=== PATIENT | male | born 1975 | race Caucasian/White ===

== ENCOUNTER 2018-12-14 22:17 | Emergency (ER) | payer BC ==
[2018-12-14] MEDS ORDERED: NS 0.9% 1000 ML** 1,000 ML IV.FLUID IV ONE (22:24)
--- NOTE | 2018-12-14 22:30 | ED ---
Palpitations / Dysrhythmia - HPI Summary HPI Summary: A 43 y/o male brought in by [facility] ambulance presents to [facility] with a chief complaint of having shaking chills and a low heart rate in the 40s per EMS. Per EMS the patient's BP was 131/78 and O2 sat was 99% on room air. 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 The patient denies any pain, rating his pain as a 0/10 in severity. He notes that he felt SOB today, has been coughing for months, woke up feverish, hot and sweaty. The patient denies any rashes, joint pain, abdominal pain, or N/V/D. He took Tylenol 2 hours ago but during the beginning of his night cleaner less than one hour ago he started to have shaking chills affecting his upper chest, shoulders and arms. The patient says that at work he sits in front of a computer all night. - History of Current Complaint Hx Obtained From: Patient Onset/Duration: Sudden Onset, Lasting Minutes, Still Present Timing: Constant Severity Initially: Mild Severity Currently: None Character: Slow Aggravating: Nothing Alleviating: Nothing Associated Signs & Symptoms: Shortness of Breath, Diaphoresis - Allergy/Home Medications Allergies/Adverse Reactions: Allergies Allergy/AdvReac Type Severity Reaction Status Date / Time No Known Allergies Allergy Verified 12/14/18 22:22 PMH/Surg Hx/FS Hx/Imm Hx Cardiovascular History: Reports: Hx Pacemaker/ICD Sensory History: Denies: Hx Deafness EENT History: Denies: Hx Deafness Infectious Disease History: No Infectious Disease History: Denies: Traveled Outside the [place] in Last 30 Days - Family History Known Family History: Positive: Cardiac Disease - mother from [place] Negative: Diabetes - Social History Alcohol Use: None Hx Substance Use: No Substance Use Type: Reports: None Hx Tobacco Use: No Smoking Status (MU): Never Smoked Tobacco Review of Systems Positive: Fever - 100.3 at triage, after taking Tylenol Positive: Other - positive: HR in the 40s per EMS Positive: Shortness Of Breath, Cough Negative: Abdominal Pain, Vomiting, Nausea Positive: Other - positive: calves hurt after exercise, shoulder arm and chest tremor.. Negative: Arthralgia All Other Systems Reviewed And Are Negative: Yes Physical Exam - Summary Physical Exam Summary: Appearance: Well-appearing, Well-nourished, lying in bed comfortably, low grade fever, somewhat tachypneic. Skin: Warm, dry, no obvious rash Eyes: sclera anicteric, no conjunctival pallor ENT: mucous membranes moist, pharynx appears normal Neck: Supple, nontender Respiratory: Clear to auscultation, no signs of respiratory distress. Well- healed scar from pacemaker insertion, pacemaker stable in its pocket. Cardiovascular: Normal S1, S2. No murmurs. Normal distal pulses in tibial and radial bilaterally. Abdomen: Soft, nontender, normal active bowel sounds present Musculoskeletal: Normal, Strength/ROM Intact Neurological: A&Ox3, awake and alert, mentation is normal, speech is fluent and appropriate Psychiatric: affect is normal, does not appear anxious or depressed Triage Information Reviewed: Yes Vital Signs On Initial Exam: Initial Vitals Temp Pulse Resp BP Pulse Ox 100.3 F 43 22 143/83 99 12/14/18 22:18 12/14/18 22:18 12/14/18 22:18 12/14/18 22:18 12/14/18 22:18 Vital Signs Reviewed: Yes Diagnostics - Vital Signs Vital Signs Temp Pulse Resp BP Pulse Ox 12/14/18 22:18 100.3 F 43 22 143/83 99 - Laboratory Result Diagrams: 12/14/18 22:39 12/14/18 22:39 Lab Statement: Any lab studies that have been ordered have been reviewed, and results considered in the medical decision making process. - Radiology CXR Radiology Interpretation Completed By: ED Physician Summary of Radiographic Findings: no acute process. Pending official imaging report. - EKG 22:15 Cardiac Rate: Other Rate - ventricular-paced complexes at 88 bpm. Summary of EKG Findings: EKG at 22:15 showed ventricular-paced complexes at 88 bpm. No further rhythm analysis attempted due to paced rhythm. Re-Evaluation - Re-Evaluation First Eval Re-Evaluation Time: 03:42 Change: Improved Comment: The patient was observed for 1.5-2 hrs because his BP declined slightly after he had nausea was given abx. His BP is now stable and the patient is stable for DC. Course/Dx - Course Course Of Treatment: A 43 y/o male brought in by [facility] ambulance presents to [facility] with a chief complaint of having a low heart rate in the 40s per EMS. The physical exam revealed that the patient has a low grade fever and is somewhat tachypnic. EKG at 22:15 showed ventricular-paced complexes at 88 bpm. No further rhythm analysis attempted due to paced rhythm. He notes that he felt SOB today, has been coughing for months, woke up feverish, hot and sweaty. CXR showed no acute process. In the ED course the patient was given Doxycycline PO, Motrin PO, Zofran IV and Sodium Chloride IV. Blood work, chemistries and urines obtained. Troponin of 0.08 at 22:39 and and 0.09 at 00:55. The patient was observed for 1.5-2 hrs because his BP declined slightly after he had nausea was given abx. His BP is now stable and the patient is stable for DC. He will be discharged with a prescription for Doxcycycline and follow up with his PCP. The patient is agreeable with this plan. - Diagnoses Provider Diagnoses: Fever Discharge - Sign-Out/Discharge Documenting (check all that apply): Patient Departure - DC Patient Received Moderate/Deep Sedation with Procedure: No - Discharge Plan Condition: Stable Disposition: HOME Prescriptions: DOXYcycline CAP(*) [DOXYcycline 100MG CAP(*)] 100 mg PO BID #28 cap Ondansetron ODT TAB* [Zofran 4 MG Odt TAB*] 8 mg PO Q6H PRN #12 tab.odt PRN Reason: Nausea Patient Education Materials: Fever in Adults (ED) Referrals: Adrian Ballesteros MD [Primary Care Provider] - - Billing Disposition and Condition Condition: STABLE Disposition: Home - Attestation Statements Document Initiated by Sena: Yes Documenting Scribe: Lg Walker Provider For Whom Sena is Documenting (Include Credential): Juventino Chapa MD Scribe Attestation: Lg Marlow scribed for Juventino Chapa MD on 12/15/18 at 0603. Scribe Documentation Reviewed: Yes Provider Attestation: The documentation as recorded by the Lg moody accurately reflects the service I personally performed and the decisions made by me, Juventino Chapa MD Status of Scribe Document: Viewed
[2018-12-14 22:48] LABS: ABS Basophils 0.1 10^3/ul (0-0.2); ABS Eosinophils 0.1 10^3/ul (0-0.6); ABS Monocytes 0.3 10^3/ul (0-0.8); ABS Neutrophils 13.7 10^3/ul (1.5-7.7); Eosinophil % 0.7 %; Hematocrit 42 % (42-52); Hemoglobin 14.1 g/dL (14.0-18.0); Lymphocyte % 6.7 %; Mean Corpuscular HGB Conc 34 g/dL (31-36); Mean Corpuscular Hemoglobin 28 pg (27-31); Mean Corpuscular Volume 85 fL (80-94); Mean Platelet Volume 7.7 fL (7.4-10.4); Platelet Count 202 10^3/uL (150-450); Red Blood Count 4.97 10^6 /uL (4.18-5.48); Red Cell Distribution Width 15 % (10-15); White Blood Count 15.3 10^3/uL (3.5-10.8)
[2018-12-14 22:57] LABS: INR 1.02 (0.82-1.09)
[2018-12-14 23:05] LABS: ALT 26 U/L (7-52); AST 16 U/L (13-39); Albumin 4.2 g/dL (3.2-5.2); Albumin/Globulin Ratio 1.3 (1-3); Alkaline Phosphatase 109 U/L (34-104); Anion Gap 10 mmol/L (2-11); BUN/Creatinine Ratio 16.1 (8-20); Blood Urea Nitrogen 19 mg/dL (6-24); CO2 Carbon Dioxide 22 mmol/L (22-32); Calcium 9.1 mg/dL (8.6-10.3); Chloride 106 mmol/L (101-111); EGFR African American 81.1 (>60); EGFR Non-African American 67.1 (>60); Globulin 3.2 g/dL (2-4); Glucose 175 mg/dL (70-100); Potassium 3.9 mmol/L (3.5-5.0); Sodium 138 mmol/L (135-145); Total Protein 7.4 g/dL (6.4-8.9)
[2018-12-14 23:13] LABS: Troponin I 0.08 ng/mL (<0.04)
[2018-12-14] MEDS ORDERED: Ibuprofen TAB* 400 MG PO ONE (23:31)
[2018-12-15 00:23] LABS: Urine Appearance Cloudy; Urine Bacteria 1+ (Absent); Urine Bilirubin Negative (Negative); Urine Blood Negative (Negative); Urine Color Yellow; Urine Glucose Negative (Negative); Urine Ketones Negative (Negative); Urine Nitrite Negative (Negative); Urine Protein 1+(30 mg/dL) (Negative); Urine Red Blood Cell 1+(3-5/hpf) (Absent); Urine Specific Gravity 1.027 (1.010-1.030); Urine Squamous Epithelial Cell Present (Absent); Urine Urobilinogen Negative (Negative); Urine White Blood Cell Trace(0-5/hpf) (Absent)
[2018-12-15] MEDS ORDERED: DOXYcycline CAP(*) 100 MG PO ONE (00:49)
[2018-12-15 01:27] LABS: Troponin I 0.09 ng/mL (<0.04)
[2018-12-15] MEDS ORDERED: Ondansetron INJ* 2 MG/ML VIAL IV ONE (01:37)
[2018-12-15 03:55] VITALS: BP 108/72
--- NOTE | 2018-12-15 13:54 | ED ---
Progress - Progress Note Progress Note: 43 yo M with pacemaker for 3rd degree block, was seen in ED for temp 101 last night. Lab called ([id number]) at 1300 and stated that pt has one full set of blood cultures from last pm growing staph aureus and one of two blood cultures in the other set growing staph aureus. Both are MRSA neg. I contacted pt on the number [phone] and advised pt that he needs to return to the ED for further evaluation. He agrees to do so, and will come directly to the ED. He states that he has been hot and cold, feverish and has been taking Tylenol and Ibuprofen. Re-Evaluation - Re-Evaluation First Eval Re-Evaluation Time: 03:42 Change: Improved Comment: The patient was observed for 1.5-2 hrs because his BP declined slightly after he had nausea was given abx. His BP is now stable and the patient is stable for DC. Course/Dx - Course Course Of Treatment: A 43 y/o male brought in by [facility] ambulance presents to [facility] with a chief complaint of having a low heart rate in the 40s per EMS. The physical exam revealed that the patient has a low grade fever and is somewhat tachypnic. EKG at 22:15 showed ventricular-paced complexes at 88 bpm. No further rhythm analysis attempted due to paced rhythm. He notes that he felt SOB today, has been coughing for months, woke up feverish, hot and sweaty. CXR showed no acute process. In the ED course the patient was given Doxycycline PO, Motrin PO, Zofran IV and Sodium Chloride IV. Blood work, chemistries and urines obtained. Troponin of 0.08 at 22:39 and and 0.09 at 00:55. The patient was observed for 1.5-2 hrs because his BP declined slightly after he had nausea was given abx. His BP is now stable and the patient is stable for DC. He will be discharged with a prescription for Doxcycycline and follow up with his PCP. The patient is agreeable with this plan. - Diagnoses Provider Diagnoses: Fever Discharge - Sign-Out/Discharge Documenting (check all that apply): Post-Discharge Follow Up - called pt to return due to positive blood cultures for staph aureus, MRSA negative Patient Received Moderate/Deep Sedation with Procedure: No - Discharge Plan Condition: Stable Disposition: HOME Prescriptions: DOXYcycline CAP(*) [DOXYcycline 100MG CAP(*)] 100 mg PO BID #28 cap Ondansetron ODT TAB* [Zofran 4 MG Odt TAB*] 8 mg PO Q6H PRN #12 tab.odt PRN Reason: Nausea Patient Education Materials: Fever in Adults (ED) Referrals: Adrian Ballesteros MD [Primary Care Provider] - - Billing Disposition and Condition Condition: STABLE Disposition: Home
--- NOTE | 2018-12-18 06:05 | PN ---
Progress Note - Progress Note Date of Service: 12/14/18 Note: Aerobic culture grew staph aureus Patient was called to return to the ED There is no indication the patient had never returned to the ED This was 4 days ago He was placed on doxycycline at the time This is sensitive to organism Called patient - but no answer. Will send letter to assure patient is improving.
--- NOTE | 2018-12-19 07:42 | PN ---
Progress Note - Progress Note Date of Service: 12/15/18 Note: Correction to previous progress note. Patient did return to ED and was transferred to [facility]. Nothing further at this time.
== END 2018-12-15 03:59 | disposition home or self-care (01) ==
LOC: ED 22:17
DX: R50.9 Fever, unspecified (principal); R06.02 Shortness of breath; R05 Cough
CPT/HCPCS: 36415; 71046; 80053; 81003; 81015; 83605; 84484; 85025; 85610; 85730; 87040; 87077; 87086; 87150; 87186; 87205; 93005; 96374; 99284; A9270-GY; J2405